=== PATIENT | female | born 1945 | race Caucasian/White ===

== ENCOUNTER 2018-11-30 06:15 | Day surgery (SDC) | payer MEDICARE ==
[~2018-11-30] VITALS: Ht 165.1 cm; Wt 58.1 kg
[~2018-11-30 06:15] MED LIST: ECHINACEA500 MG PO; FEXOFENADINE HC60 MG PO; FLOVENT HFA12 G1 INH; K-TAB ER20 MEQ PO; MAGNESIUM500 MG PO; PROBIOTIC1 EAC1 PO; PROVENTIL HFA6.7 GM INH; VITAMIN B122500 MCG PO; WAL-PROFEN200 MG PO; ZOFRAN ODT4 MG PO
--- NOTE | 2018-11-30 08:08 | NUR ---
PT IS ALERT, ORIENTED AND SUPPORTED BY HER PORFIRIO. PT'S FIRST SCOPE, AND PREP HAS APPARENTLY BEEN A CHALLENGE. PT STATED "I STILL FEEL RUMBLINGS AND WON'T MAKE IT TO THE BR". PT AND BOTH DECLINED ANY FURTHER NEEDS AND ALSO DECLINED PRAYER AT THIS TIME. WILL FOLLOW NEEDED
--- NOTE | 2018-11-30 08:12 | NUR ---
11/30/18 0811 Danna Chavarria 0804 PT ARRIVED IN PACU SLEEPY WITH NO C/O'S. ABD SOFT.
--- NOTE | 2018-11-30 19:22 | OR ---
[facility] [address], [place] [address] Signed DATE OF OPERATION: 11/30/2018 SURGEON: Olaf Clifford MD PREOPERATIVE DIAGNOSIS: Colon screening. POSTOPERATIVE DIAGNOSIS: Small polyp, splenic flexure. PROCEDURE PERFORMED: Total colonoscopy to cecum with cold morcellation polypectomy x1. ANESTHESIA: Intravenous sedation, fentanyl 200 mcg, and Versed 6 mg. INDICATION: This 73-year-old white woman is a patient Dr. Whitehead and has never had colonoscopy in the past. No screening colonoscopy or other interventions of any sort, including barium enema. She is symptom-free at this time. She is admitted to undergo colonoscopy, understanding the risks of bleeding, infection, and perforation. DESCRIPTION OF PROCEDURE: The patient was brought to the endoscopy suite, placed in lateral decubitus position, and given intravenous sedation to the point of slurred speech and nystagmus. Full cardiopulmonary monitoring was maintained. An Olympus video colonoscope was passed in the rectum and manipulated throughout the colon. Noted at the splenic flexure was a small sessile polyp. This was excised with cold morcellation technique. The scope was then advanced beyond this area to the cecum. Passage was somewhat challenging on the basis of angulation of the colon, but no sign of stricture or other issues noted. Once the cecum was obtained, scope was carefully withdrawn and examination undertaken showed no other abnormalities. Retroflexed view of the rectum was normal. The scope was removed and the patient was taken to recovery room in good condition. CONCLUDING DIAGNOSIS: Small polyp of colon. PLAN: Recommend repeat colonoscopy in 5 years if clinically appropriate based on her advanced age at that time, sooner if there are symptoms. She will return to the ongoing care of Electronically Signed By: OLAF CLIFFORD MD 11/30/18 1922 PATIENT NAME: JENNIE AVENDAÑO OPERATIVE REPORT DATE OF : 45 REPORT #: [id number] PHYSICIAN: OLAF CLIFFORD MD PCP: TERE WHITEHEAD MD REPORT IS CONFIDENTIAL AND NOT TO BE RELEASED WITHOUT AUTHORIZATION [address] Whitehead[address] MD BARTOLOME Ocasio/MODL /[id number] cc: Tere Whitehaed MD Copies: TERE WHITEHEAD MD ~ Electronically Signed By: OLAF CLIFFORD MD 11/30/18 1922 PATIENT NAME: JENNIE AVENDAÑO OPERATIVE REPORT DATE OF : 45 REPORT #: [id number] PHYSICIAN: OLAF CLIFFORD MD PCP: TERE WHITEHEAD MD REPORT IS CONFIDENTIAL AND NOT TO BE RELEASED WITHOUT AUTHORIZATION
== END 2018-11-30 09:00 | disposition home or self-care (01) ==
LOC: OPS 06:15 → DS 06:15 → OPS 06:45
PROVIDERS: Surgery
PROC: 0DBL8ZZ Excision of Transverse Colon, Via Natural or Artificial Opening Endoscopic (ICD-10-PCS; principal; 2018-11-30 06:45)
DX: Z12.11 Encounter for screening for malignant neoplasm of colon (principal); D12.3 Benign neoplasm of transverse colon; J45.909 Unspecified asthma, uncomplicated; Z88.0 Allergy status to penicillin; Z88.2 Allergy status to sulfonamides; Z88.8 Allergy status to other drugs, medicaments and biological substances; Z88.7 Allergy status to serum and vaccine; Z79.899 Other long term (current) drug therapy
CPT/HCPCS: 99153; G0500; J2250; J3010; J7120